=== PATIENT | male | born 1995 | race Caucasian/White ===

== ENCOUNTER 2019-05-09 17:18 | Emergency (ER) | payer MEDICAID, OTHER ==
--- NOTE | 2019-05-09 18:52 | RAD ---
CHEST TWO VIEWS: 05/09/19 The heart is normal in size and the lungs are clear. No infiltrate or effusion was seen. There is no sign of pneumonia. IMPRESSION: No acute findings. POS: HOME
== END 2019-05-09 18:35 | disposition home or self-care (01) ==
LOC: BURERS 17:18
DX: M54.2 Cervicalgia (principal); F17.210 Nicotine dependence, cigarettes, uncomplicated
CPT/HCPCS: 71046